=== PATIENT | female | born 1935 | race Asian ===

== ENCOUNTER 2017-01-12 14:47 | Emergency (ER) | payer MEDICARE, OTHER ==
[~2017-01-12] VITALS: Ht 160 cm; Wt 59.1 kg
[~2017-01-12 14:47] MED LIST: AMLO5TAB66 PO; ATOR20TA86 PO; CALC500T62 PO; MONT10TA21 PO; OMEP20 PO
[2017-01-12 16:15] LABS: BASOPHILS % (AUTO) 1.2 % (0.0-2.0); HEMATOCRIT 40.2 % (36-46); HEMOGLOBIN 13.5 g/dL (12.0-16.0); LYMPHOCYTES # (AUTO) 1.9 K/uL (1.0-4.8); LYMPHOCYTES % (AUTO) 35.5 % (22.0-44.0); MEAN CORPUSCULAR HEMOGLOBIN 29.5 pg (26.0-34.0); MEAN CORPUSCULAR HGB CONC 33.6 G/dL (31.0-37.0); MEAN CORPUSCULAR VOLUME 88 fL (80-100); MONOCYTES # (AUTO) 0.2 K/uL (0.1-1.0); MONOCYTES % (AUTO) 3.8 % (2.0-9.0); NEUTROPHILS % (AUTO) 56.5 % (40.0-70.0); PLATELET COUNT (AUTO) 275 K/uL (150-450); RED BLOOD CELL COUNT(AUTO) 4.59 MIL/uL (4.00-5.20); RED CELL DISTRIBUTION WIDTH 14.3 % (11.5-14.5); WHITE BLOOD COUNT (AUTO) 5.2 K/uL (4.5-11.0)
[2017-01-12 16:28] LABS: ANION GAP 9 mmol/L (8-16); CALCIUM, TOTAL 9.7 mg/dL (8.8-10.5); CARBON DIOXIDE 30 mmol/L (22-29); CHLORIDE 105 mmol/L (98-107); CREATININE 0.69 mg/dL (0.60-1.30); GLOMERULAR FILTR. RATE CALC > 60 mL/min (>60); POTASSIUM 4.4 mmol/L (3.5-5.1); SODIUM SERUM 144 mmol/L (136-145); UREA NITROGEN, BLOOD 13 mg/dL (7-18)
[2017-01-12 16:41] LABS: B-TYPE NATRIURETIC PEPTIDE 65 pg/mL (0-100)
[2017-01-12 16:51] LABS: ALANINE AMINOTRANSFERASE 22 U/L (12-78); ALBUMIN 3.9 g/dL (3.4-5.0); ASPARTATE AMINOTRANSFERASE 18 U/L (15-37); BILIRUBIN,TOTAL 0.4 mg/dL (0.1-1.0); CREATINE KINASE MB 1.3 ng/mL (0-5); CREATINE KINASE, TOTAL 87 U/L (26-192); TOTAL PROTEIN, SERUM 8.1 g/dL (6.4-8.2)
[2017-01-12 17:33] VITALS: BP 172/82
== END 2017-01-12 18:08 | disposition home or self-care (01) ==
LOC: EMS 14:47
DX: I10 Essential (primary) hypertension (principal); K21.9 Gastro-esophageal reflux disease without esophagitis; E78.00 Pure hypercholesterolemia, unspecified
CPT/HCPCS: 93005; 99285

== ENCOUNTER → 2018-08-23 | Outpatient (CLI) | payer MEDICARE, OTHER | END | disposition home or self-care (01) | LOC: RADPV 09:16 | PROVIDERS: ATTEND Internal Medicine | DX: Z13.820 Encounter for screening for osteoporosis (principal); M81.0 Age-related osteoporosis without current pathological fracture | CPT/HCPCS: 77080 ==

== ENCOUNTER 2020-09-17 21:17 | Emergency (ER) | payer MEDICARE, OTHER ==
[~2020-09-17] VITALS: Ht 157.5 cm; Wt 69.1 kg
[~2020-09-17 21:17] MED LIST changes: +MONT-35 PO; -MONT10TA21 PO
[2020-09-17 22:05] LABS: BASOPHILS % (AUTO) 1.1 % (0.0-2.0); EOSINOPHILS % (AUTO) 7.2 % (1.0-6.0); HEMOGLOBIN 13.5 g/dL (12.0-16.0); LYMPHOCYTES # (AUTO) 2.9 K/uL (1.0-4.8); MEAN CORPUSCULAR HEMOGLOBIN 28.8 pg (26.0-34.0); MEAN CORPUSCULAR HGB CONC 32.9 G/dL (31.0-37.0); MEAN CORPUSCULAR VOLUME 88 fL (80-100); MONOCYTES # (AUTO) 0.5 K/uL (0.1-1.0); MONOCYTES % (AUTO) 7.2 % (2.0-9.0); NEUTROPHILS # (AUTO) 2.7 K/uL (1.8-7.7); NEUTROPHILS % (AUTO) 40.5 % (40.0-70.0); PLATELET COUNT (AUTO) 289 K/uL (150-450); RED BLOOD CELL COUNT(AUTO) 4.68 MIL/uL (4.00-5.20); RED CELL DISTRIBUTION WIDTH 14.3 % (11.5-14.5)
[2020-09-17 22:16] LABS: CALCIUM, TOTAL 9.5 mg/dL (8.8-10.5); CREATININE 1.01 mg/dL (0.60-1.30); POTASSIUM 3.5 mmol/L (3.5-5.1)
[2020-09-17 22:22] LABS: ALBUMIN 3.9 g/dL (3.4-5.0); BILIRUBIN,TOTAL 0.4 mg/dL (0.1-1.0); TOTAL PROTEIN, SERUM 8.4 g/dL (6.4-8.2)
[2020-09-17 22:50] LABS: APPEARANCE,URINE CLEAR (CLEAR); BILIRUBIN,URINE NEGATIVE (NEGATIVE); GLUCOSE, URINE (UA) NEGATIVE (NEGATIVE); KETONES,URINE NEGATIVE (NEGATIVE); LEUKOCYTE ESTERASE ,URINE TRACE (NEGATIVE); NITRATE,URINE NEGATIVE (NEGATIVE); OCCULT BLOOD,URINE NEGATIVE (NEGATIVE); PH,URINE 6.5 (5.0-8.0); PROTEIN,URINE NEGATIVE (NEGATIVE); UROBILINOGEN,URINE 0.2 mg/dL (<=1.0)
[2020-09-17 23:08] LABS: BACTERIA,URINE None Seen /HPF (None Seen); RBC,URINE None Seen /HPF (0-2); SQUAMOUS EPITHELIAL CELL,UR None Seen /LPF (None Seen)
[2020-09-18] VITALS: BP 155/72
== END 2020-09-18 01:05 | disposition left against medical advice (07) ==
LOC: EMS 21:19
DX: I10 Essential (primary) hypertension (principal); E78.00 Pure hypercholesterolemia, unspecified; Z79.899 Other long term (current) drug therapy; Z88.8 Allergy status to other drugs, medicaments and biological substances
CPT/HCPCS: 70450; 71045; 80053; 81001; 82550; 83880; 84484; 85025; 93005; 99285; 36415-L1; 36415-TC

== ENCOUNTER 2021-03-29 06:38 | Emergency (ER) | payer MEDICARE, OTHER ==
[~2021-03-29] VITALS: Ht 152.4 cm; Wt 59.1 kg
[2021-03-29 07:03] LABS: BASOPHILS % (AUTO) 1.7 % (0.0-2.0); EOSINOPHILS % (AUTO) 9.8 % (1.0-6.0); HEMATOCRIT 41.4 % (36-46); HEMOGLOBIN 13.4 g/dL (12.0-16.0); LYMPHOCYTES # (AUTO) 2.9 K/uL (1.0-4.8); LYMPHOCYTES % (AUTO) 49.2 % (22.0-44.0); MEAN CORPUSCULAR HEMOGLOBIN 28.5 pg (26.0-34.0); MEAN CORPUSCULAR HGB CONC 32.5 G/dL (31.0-37.0); MEAN CORPUSCULAR VOLUME 88 fL (80-100); MONOCYTES # (AUTO) 0.4 K/uL (0.1-1.0); MONOCYTES % (AUTO) 6.5 % (2.0-9.0); NEUTROPHILS # (AUTO) 1.9 K/uL (1.8-7.7); NEUTROPHILS % (AUTO) 32.8 % (40.0-70.0); PLATELET COUNT (AUTO) 258 K/uL (150-450); RED BLOOD CELL COUNT(AUTO) 4.71 MIL/uL (4.00-5.20); RED CELL DISTRIBUTION WIDTH 14.4 % (11.5-14.5)
[2021-03-29 07:11] LABS: ANION GAP 10 mmol/L (8-16); CALCIUM, TOTAL 8.6 mg/dL (8.8-10.5); CARBON DIOXIDE 27 mmol/L (22-29); CHLORIDE 107 mmol/L (98-107); CREATININE 0.79 mg/dL (0.60-1.30); GLOMERULAR FILTR. RATE CALC > 60 mL/min (>60); GLUCOSE,RANDOM 138 mg/dL (70-110); POTASSIUM 3.6 mmol/L (3.5-5.1); SODIUM SERUM 144 mmol/L (136-145); UREA NITROGEN, BLOOD 14 mg/dL (7-18)
[2021-03-29 07:13] LABS: APPEARANCE,URINE CLOUDY (CLEAR); BILIRUBIN,URINE NEGATIVE (NEGATIVE); GLUCOSE, URINE (UA) NEGATIVE (NEGATIVE); KETONES,URINE NEGATIVE (NEGATIVE); LEUKOCYTE ESTERASE ,URINE TRACE (NEGATIVE); NITRATE,URINE POSITIVE (NEGATIVE); OCCULT BLOOD,URINE NEGATIVE (NEGATIVE); PH,URINE 6.5 (5.0-8.0); PROTEIN,URINE NEGATIVE (NEGATIVE); UROBILINOGEN,URINE 0.2 mg/dL (<=1.0)
[2021-03-29] MEDS ORDERED: AmLODIPine BESYLATE 5 MG TABLET PO ONE (07:15)
[2021-03-29] MEDS ORDERED: ONDANSETRON HCL 4 MG TABLET PO ONE (07:15)
[2021-03-29 07:17] LABS: ALANINE AMINOTRANSFERASE 27 U/L (12-78); ALBUMIN 3.6 g/dL (3.4-5.0); ALKALINE PHOSPHATASE 65 U/L (46-116); ASPARTATE AMINOTRANSFERASE 18 U/L (15-37); BILIRUBIN,TOTAL 0.5 mg/dL (0.1-1.0); TOTAL PROTEIN, SERUM 8.1 g/dL (6.4-8.2)
[2021-03-29 07:30] LABS: BACTERIA,URINE Moderate /HPF (None Seen); RBC,URINE None Seen /HPF (0-2); SQUAMOUS EPITHELIAL CELL,UR Few /LPF (None Seen)
[2021-03-29] MEDS ORDERED: ASCO500 PO (07:31)
[2021-03-29] MEDS ORDERED: CIPR-278 PO (07:31)
[2021-03-29] MEDS ORDERED: LOSA25TA21 PO (07:31)
[2021-03-29] MEDS ORDERED: SIMV-259 PO (07:31)
[2021-03-29] MEDS ORDERED: OMEP20 PO (07:31)
[2021-03-29 07:43] LABS: FREE T4 (FREE THYROXINE) 1.01 ng/dL (0.76-1.46); THYROID STIMULATING HORMONE 0.55 uIU/mL (0.36-3.74)
[2021-03-29 07:44] LABS: ACETAMINOPHEN < 2 mcg/mL (10-30)
[2021-03-29] MEDS ORDERED: CefTRIAXone 1 GM/DEXTROSE 50 ML IV ONE (07:45)
[2021-03-29 07:47] LABS: SALICYLATE < 2.8 mg/dL (2.8-20.0)
[2021-03-29 08:45] VITALS: BP 183/85
== END 2021-03-29 09:17 | disposition home or self-care (01) ==
LOC: EMS 06:42
DX: N39.0 Urinary tract infection, site not specified (principal); I10 Essential (primary) hypertension; E78.00 Pure hypercholesterolemia, unspecified; K21.9 Gastro-esophageal reflux disease without esophagitis; Z79.899 Other long term (current) drug therapy
CPT/HCPCS: 36415; 70450; 71045; 80053; 81001; 84439; 84443; 84484; 85025; 87077; 87086; 93005; 96365; 99285; G0480; J0696; Q0162; 87186; G0481

== ENCOUNTER 2023-03-15 08:34 | Emergency (ER) | payer MEDICARE, OTHER ==
[~2023-03-15] VITALS: Ht 152.4 cm; Wt 60.5 kg
[~2023-03-15 08:34] MED LIST changes: +AMLO-258 PO; -AMLO5TAB66 PO; +ASCO500 PO; -ATOR20TA86 PO; +LOSA-417 PO; +SIMV-259 PO
[2023-03-15 09:54] VITALS: TEMP 98.8
[2023-03-15 10:33] LABS: BASOPHILS % (AUTO) 0.9 % (0.0-2.0); EOSINOPHILS % (AUTO) 2.3 % (1.0-6.0); HEMATOCRIT 40.9 % (36-46); HEMOGLOBIN 13.5 g/dL (12.0-16.0); LYMPHOCYTES # (AUTO) 1.6 K/uL (1.0-4.8); LYMPHOCYTES % (AUTO) 30.1 % (22.0-44.0); MEAN CORPUSCULAR HEMOGLOBIN 29.5 pg (26.0-34.0); MEAN CORPUSCULAR HGB CONC 33.1 G/dL (31.0-37.0); MEAN CORPUSCULAR VOLUME 89 fL (80-100); MONOCYTES # (AUTO) 0.2 K/uL (0.1-1.0); MONOCYTES % (AUTO) 4.1 % (2.0-9.0); NEUTROPHILS # (AUTO) 3.4 K/uL (1.8-7.7); NEUTROPHILS % (AUTO) 62.6 % (40.0-70.0); PLATELET COUNT (AUTO) 297 K/uL (150-450); RED CELL DISTRIBUTION WIDTH 14.1 % (11.5-14.5); WHITE BLOOD COUNT (AUTO) 5.5 K/uL (4.5-11.0)
[2023-03-15 10:38] LABS: PROTHROMBIN TIME 10.4 SEC (9.4-11.6)
[2023-03-15 10:40] LABS: ANION GAP 6 mmol/L (8-16); CALCIUM, TOTAL 9.1 mg/dL (8.8-10.5); CARBON DIOXIDE 29 mmol/L (22-29); CHLORIDE 101 mmol/L (98-107); CREATININE 0.86 mg/dL (0.60-1.30); GLOMERULAR FILTR. RATE CALC > 60 mL/min (>60); GLUCOSE,RANDOM 123 mg/dL (70-110); POTASSIUM 3.6 mmol/L (3.5-5.1); SODIUM SERUM 136 mmol/L (136-145); UREA NITROGEN, BLOOD 16 mg/dL (7-18)
[2023-03-15 10:46] LABS: ALANINE AMINOTRANSFERASE 23 U/L (12-78); ALBUMIN 3.6 g/dL (3.4-5.0); ALKALINE PHOSPHATASE 74 U/L (46-116); ASPARTATE AMINOTRANSFERASE 17 U/L (15-37); BILIRUBIN,TOTAL 0.4 mg/dL (0.1-1.0); CREATINE KINASE, TOTAL ONLY 64 U/L (26-192); LIPASE 24 U/L (16-77); TOTAL PROTEIN, SERUM 8.2 g/dL (6.4-8.2)
[2023-03-15 10:48] LABS: TROPONIN I-HIGH SENSITIVITY 16 ng/L (<51)
[2023-03-15 11:01] LABS: B-TYPE NATRIURETIC PEPTIDE 90 pg/mL (0-100)
[2023-03-15 11:41] LABS: APPEARANCE,URINE CLEAR (CLEAR); BILIRUBIN,URINE NEGATIVE (NEGATIVE); COLOR,URINE COLORLESS (YELLOW); GLUCOSE, URINE (UA) NEGATIVE (NEGATIVE); KETONES,URINE NEGATIVE (NEGATIVE); LEUKOCYTE ESTERASE ,URINE SMALL (NEGATIVE); NITRATE,URINE NEGATIVE (NEGATIVE); OCCULT BLOOD,URINE NEGATIVE (NEGATIVE); PH,URINE 7.5 (5.0-8.0); PROTEIN,URINE NEGATIVE (NEGATIVE); SPECIFIC GRAVITIY, URINE 1.005 (1.003-1.030); UROBILINOGEN,URINE <=1.0 mg/dL (<=1.0)
[2023-03-15 11:49] LABS: BACTERIA,URINE None Seen /HPF (None Seen); RBC,URINE None Seen /HPF (0-2); SQUAMOUS EPITHELIAL CELL,UR Few /LPF (None Seen)
[2023-03-15] MEDS ORDERED: ACETAMINOPHEN 500 MG TABLET PO ONE (13:00)
[2023-03-15] MEDS ORDERED: ONDANSETRON HCL 4 MG TABLET PO ONE (13:00)
[2023-03-15] MEDS ORDERED: ONDA-104 PO (13:12)
[2023-03-15 13:40] VITALS: BP 132/69; PULSE 69; RESP 16
== END 2023-03-15 13:53 | disposition home or self-care (01) ==
LOC: EMS 08:53
DX: R10.13 Epigastric pain (principal); I10 Essential (primary) hypertension; Z98.890 Other specified postprocedural states
CPT/HCPCS: 99285; 71045; 80053; 81001; 82550; 83605; 83690; 83880; 84484; 85025; 85610; 85730; 36415; 93005; Q0162

== ENCOUNTER 2024-05-24 18:41 | Inpatient (IN) | payer MEDICARE, OTHER ==
[~2024-05-24] VITALS: Ht 157.5 cm; Wt 82.7 kg
[~2024-05-24 18:41] MED LIST changes: -ASCO500 PO; +ASPI-1450 PO; -CALC500T62 PO; +CHOL100062 PO; +LEVO5TAB13 PO; +LOSA-382 PO; -LOSA-417 PO; -MONT-35 PO; -OMEP20 PO; +OMEP20CA12 PO; +OS500 PO; -SIMV-259 PO; +SIMV-43 PO
[2024-05-24] MEDS ORDERED: SIMV-260 PO (19:59)
[2024-05-24] MEDS ORDERED: LOSA100T59 PO (19:59)
[2024-05-24 20:19] LABS: APPEARANCE,URINE CLEAR (CLEAR); BILIRUBIN,URINE NEGATIVE (NEGATIVE); COLOR,URINE COLORLESS (YELLOW); GLUCOSE, URINE (UA) NEGATIVE (NEGATIVE); KETONES,URINE NEGATIVE (NEGATIVE); LEUKOCYTE ESTERASE ,URINE TRACE (NEGATIVE); NITRATE,URINE NEGATIVE (NEGATIVE); OCCULT BLOOD,URINE NEGATIVE (NEGATIVE); PH,URINE 5.5 (5.0-8.0); PROTEIN,URINE NEGATIVE (NEGATIVE); SPECIFIC GRAVITIY, URINE 1.006 (1.003-1.030); UROBILINOGEN,URINE <=1.0 mg/dL (<=1.0)
[2024-05-24] MEDS: 0.9% SODIUM CHLORIDE 10 ML SYRINGE IVP PRN (20:21)
[2024-05-24] MEDS: ACETAMINOPHEN 1000 MG/ISO-OSM 100 ML IV ONE (20:22)
[2024-05-24] MEDS: AZITHROMYCIN 500 MG/NS 250 ML IV ONE (20:22)
[2024-05-24] MEDS: CefTRIAXone 1 GM/DEXTROSE 50 ML IV ONE (20:22)
[2024-05-24 20:33] LABS: BASOPHILS % (AUTO) 0.6 % (0.0-2.0); EOSINOPHILS % (AUTO) 2.2 % (1.0-6.0); HEMATOCRIT 39.3 % (36-46); HEMOGLOBIN 12.7 g/dL (12.0-16.0); LYMPHOCYTES # (AUTO) 2.6 K/uL (1.0-4.8); LYMPHOCYTES % (AUTO) 31.9 % (22.0-44.0); MEAN CORPUSCULAR HEMOGLOBIN 28.7 pg (26.0-34.0); MEAN CORPUSCULAR HGB CONC 32.4 G/dL (31.0-37.0); MEAN CORPUSCULAR VOLUME 89 fL (80-100); MONOCYTES # (AUTO) 0.8 K/uL (0.1-1.0); MONOCYTES % (AUTO) 9.9 % (2.0-9.0); NEUTROPHILS # (AUTO) 4.5 K/uL (1.8-7.7); NEUTROPHILS % (AUTO) 55.4 % (40.0-70.0); PLATELET COUNT (AUTO) 307 K/uL (150-450); RED BLOOD CELL COUNT(AUTO) 4.43 MIL/uL (4.00-5.20); RED CELL DISTRIBUTION WIDTH 14.4 % (11.5-14.5)
[2024-05-24 20:35] LABS: BACTERIA,URINE None Seen /HPF (None Seen); RBC,URINE None Seen /HPF (0-2); SQUAMOUS EPITHELIAL CELL,UR Rare /LPF (None Seen); WBC,URINE 0-2 /HPF (0-5)
[2024-05-24 20:43] LABS: ANION GAP 8 mmol/L (8-16); CALCIUM, TOTAL 9.1 mg/dL (8.8-10.5); CARBON DIOXIDE 31 mmol/L (22-29); CHLORIDE 100 mmol/L (98-107); CREATININE 1.13 mg/dL (0.60-1.30); GLOMERULAR FILTR. RATE CALC 45 mL/min (>60); GLUCOSE,RANDOM 124 mg/dL (70-110); POTASSIUM 3.3 mmol/L (3.5-5.1); SODIUM SERUM 139 mmol/L (136-145); UREA NITROGEN, BLOOD 18 mg/dL (7-18)
[2024-05-24 20:50] LABS: ALANINE AMINOTRANSFERASE 18 U/L (12-78); ALBUMIN 2.9 g/dL (3.4-5.0); ALKALINE PHOSPHATASE 71 U/L (46-116); ASPARTATE AMINOTRANSFERASE 21 U/L (15-37); BILIRUBIN,TOTAL 0.5 mg/dL (0.1-1.0); CREATINE KINASE, TOTAL ONLY 48 U/L (26-192); TOTAL PROTEIN, SERUM 7.9 g/dL (6.4-8.2)
[2024-05-24 20:52] LABS: LACTIC ACID 1.1 mmol/L (0.4-2.0); TROPONIN I-HIGH SENSITIVITY 20 ng/L (<51)
[2024-05-24 20:54] LABS: B-TYPE NATRIURETIC PEPTIDE 96 pg/mL (0-100)
[2024-05-24] MEDS ORDERED: POTASSIUM CHL 10 MEQ/WATER 50 ML IV PRN (21:45)
[2024-05-24] MEDS ORDERED: ALBUTEROL SULFATE 2.5 MG/0.5 ML NEB SOLUTION NEB PRN (21:45)
[2024-05-24] MEDS ORDERED: HydrALAZINE HCL 20 MG/ML VIAL IVP PRN (21:45)
[2024-05-24] MEDS: AmLODIPine BESYLATE 10 MG TABLET PO SCH (22:12)
[2024-05-24] MEDS: POTASSIUM CHLORIDE 20 MEQ ER TABLET PO PRN (22:12)
[2024-05-25] MEDS: HEPARIN SODIUM,PORCINE 5,000 UNITS/ML VIAL SQ SCH
[2024-05-25 07:32] VITALS: BP 177/83; PULSE 78; RESP 18; TEMP 98; O2SAT 98
[2024-05-25] MEDS: DOCUSATE SODIUM 100 MG CAPSULE PO SCH (08:36)
[2024-05-25] MEDS: BENZONATATE 100 MG CAPSULE PO PRN (08:36)
[2024-05-25] MEDS: FAMOTIDINE 20 MG TABLET PO SCH (08:37)
[2024-05-25 11:00] VITALS: BP 123/95; PULSE 65; RESP 18; TEMP 97.8; O2SAT 96
[2024-05-25 15:48] LABS: COVID AG,FIA SOURCE NASAL SWAB
[2024-05-25 16:08] LABS: INFLUENZA TYPE A NEGATIVE FOR TYPE A (NEGATIVE); INFLUENZA TYPE B NEGATIVE FOR TYPE B (NEGATIVE)
[2024-05-25 16:10] VITALS: BP 150/90; PULSE 73; RESP 18; TEMP 98.1; O2SAT 97
[2024-05-25 16:30] LABS: SARS-COV2 (COVID) ANTIGEN,FIA Positive (Negative)
[2024-05-25] MEDS ORDERED: SODIUM CHLORIDE 0.9% 500 ML IV ONE (19:59)
[2024-05-25 20:49] VITALS: BP 163/71; PULSE 73; RESP 20; TEMP 97.8; O2SAT 97
[2024-05-25] MEDS: CefTRIAXone 1 GM/DEXTROSE 50 ML IV SCH (21:14)
[2024-05-25] MEDS: AZITHROMYCIN 500 MG/NS 250 ML IV SCH (22:25)
[2024-05-26] VITALS: BP 143/75; PULSE 71; RESP 18; TEMP 98.4; O2SAT 95
[2024-05-26 04:29] VITALS: BP 137/63; PULSE 72; RESP 17; TEMP 97.9; O2SAT 94
[2024-05-26 08:21] VITALS: BP 145/104; PULSE 64; RESP 16; TEMP 98; O2SAT 96
[2024-05-26] MEDS ORDERED: BENZ-227 PO (11:28)
[2024-05-26] MEDS ORDERED: LEVO-72 PO (11:28)
[2024-05-26 12:23] VITALS: BP 149/89; PULSE 88; RESP 16; TEMP 98.1; O2SAT 99
[2024-05-26] MEDS: ACETAMINOPHEN 325 MG TABLET PO PRN (15:31)
== END 2024-05-26 18:00 | disposition home or self-care (01) | DRG 177 ==
LOC: EMS 18:41 → EDH 21:49 → 5N 05-25 07:00
PROVIDERS: ADMIT Internal Medicine; ATTEND Internal Medicine
DX: U07.1 COVID-19 (principal); J12.82 Pneumonia due to coronavirus disease 2019; I16.0 Hypertensive urgency; E87.6 Hypokalemia; M81.0 Age-related osteoporosis without current pathological fracture; I10 Essential (primary) hypertension; K21.9 Gastro-esophageal reflux disease without esophagitis; Z87.01 Personal history of pneumonia (recurrent); Z91.148 Patient's other noncompliance with medication regimen for other reason
CPT/HCPCS: 71045; 80048; 80076; 81001; 82550; 83605; 83880; 84132; 84145; 84484; 85025; 87040; 87804; 93005; 99285; G0378; J0131; J0456; J0696; J1644; J7040; 36415-L1; 36415-TC

== ENCOUNTER 2024-09-06 11:44 | Inpatient (IN) | payer MEDICARE, OTHER ==
[~2024-09-06] VITALS: Ht 152.4 cm; Wt 78.5 kg
[~2024-09-06 11:44] MED LIST changes: +BENZ-227 PO; +LEVO-72 PO; -LEVO5TAB13 PO; -LOSA-382 PO
[2024-09-06 12:25] LABS: BASOPHILS % (AUTO) 1.6 % (0.0-2.0); EOSINOPHILS % (AUTO) 3.1 % (1.0-6.0); HEMATOCRIT 41.4 % (36-46); HEMOGLOBIN 13.4 g/dL (12.0-16.0); LYMPHOCYTES % (AUTO) 38.7 % (22.0-44.0); MEAN CORPUSCULAR HEMOGLOBIN 28.5 pg (26.0-34.0); MEAN CORPUSCULAR HGB CONC 32.4 G/dL (31.0-37.0); MEAN CORPUSCULAR VOLUME 88 fL (80-100); MONOCYTES # (AUTO) 0.2 K/uL (0.1-1.0); MONOCYTES % (AUTO) 3.7 % (2.0-9.0); NEUTROPHILS # (AUTO) 2.8 K/uL (1.8-7.7); NEUTROPHILS % (AUTO) 52.9 % (40.0-70.0); PLATELET COUNT (AUTO) 284 K/uL (150-450); RED BLOOD CELL COUNT(AUTO) 4.69 MIL/uL (4.00-5.20); RED CELL DISTRIBUTION WIDTH 14.5 % (11.5-14.5); WHITE BLOOD COUNT (AUTO) 5.2 K/uL (4.5-11.0)
[2024-09-06 12:33] LABS: ANION GAP 7 mmol/L (8-16); CALCIUM, TOTAL 9.2 mg/dL (8.8-10.5); CARBON DIOXIDE 28 mmol/L (22-29); CHLORIDE 103 mmol/L (98-107); CREATININE 0.85 mg/dL (0.60-1.30); GLOMERULAR FILTR. RATE CALC > 60 mL/min (>60); GLUCOSE,RANDOM 127 mg/dL (70-110); POTASSIUM 3.6 mmol/L (3.5-5.1); SODIUM SERUM 138 mmol/L (136-145); UREA NITROGEN, BLOOD 14 mg/dL (7-18)
[2024-09-06 12:42] LABS: LIPASE 23 U/L (16-77); TROPONIN I-HIGH SENSITIVITY 16 ng/L (<51)
[2024-09-06 12:47] LABS: ALBUMIN 3.7 g/dL (3.4-5.0); BILIRUBIN,DIRECT 0.2 mg/dL (0.00-0.20); BILIRUBIN,TOTAL 0.7 mg/dL (0.1-1.0); TOTAL PROTEIN, SERUM 8.6 g/dL (6.4-8.2)
[2024-09-06] MEDS: HydrALAZINE HCL 20 MG/ML VIAL IVP ONE (14:30)
[2024-09-06] MEDS ORDERED: ZOLPIDEM TARTRATE 5 MG TABLET PO PRN (15:45)
[2024-09-06] MEDS ORDERED: HYDROCODONE/ACETAMINOPHEN 5-325 MG TABLET PO PRN (15:45)
[2024-09-06] MEDS ORDERED: ONDANSETRON HCL 4 MG/2 ML VIAL IVP PRN (15:45)
[2024-09-06] MEDS ORDERED: MAGNESIUM HYDROXIDE SUSPENSION 30 ML UDCUP PO PRN (15:45)
[2024-09-06] MEDS ORDERED: ACETAMINOPHEN 325 MG TABLET PO PRN (15:45)
[2024-09-06] MEDS ORDERED: IPRATROPIUM BROMIDE 0.5 MG/2.5 ML NEB SOLUTION NEB PRN (15:45)
[2024-09-06] MEDS ORDERED: BISACODYL 10 MG RECTAL RECTAL SUPPOSITORY PR PRN (15:45)
[2024-09-06] MEDS ORDERED: ALBUTEROL SULFATE 2.5 MG/0.5 ML NEB SOLUTION NEB PRN (15:45)
[2024-09-06] MEDS ORDERED: MORPHINE SULFATE 2 MG/ML SYRINGE IVP PRN (15:45)
[2024-09-06] MEDS: HEPARIN SODIUM,PORCINE 5,000 UNITS/ML VIAL SQ SCH (15:46)
[2024-09-06 17:12] LABS: APPEARANCE,URINE CLEAR (CLEAR); BILIRUBIN,URINE NEGATIVE (NEGATIVE); COLOR,URINE COLORLESS (YELLOW); GLUCOSE, URINE (UA) NEGATIVE (NEGATIVE); KETONES,URINE NEGATIVE (NEGATIVE); LEUKOCYTE ESTERASE ,URINE NEGATIVE (NEGATIVE); NITRATE,URINE NEGATIVE (NEGATIVE); OCCULT BLOOD,URINE NEGATIVE (NEGATIVE); PH,URINE 7.5 (5.0-8.0); PROTEIN,URINE NEGATIVE (NEGATIVE); SPECIFIC GRAVITIY, URINE 1.006 (1.003-1.030); UROBILINOGEN,URINE <=1.0 mg/dL (<=1.0)
[2024-09-06 18:53] VITALS: BP 169/66; PULSE 84; RESP 18; TEMP 98.1; O2SAT 97
[2024-09-06 20:00] VITALS: BP 150/58; PULSE 78; RESP 18; TEMP 97.9; O2SAT 98
[2024-09-06] MEDS: CALCIUM [CALCIUM CARB 1250MG] 500 MG TABLET PO SCH (21:29)
[2024-09-06] MEDS: SIMVASTATIN 20 MG TABLET PO SCH (21:29)
[2024-09-07] VITALS (7 sets, daily range): BP systolic 114–157; BP diastolic 54–72; PULSE 58–74; RESP 18–19; TEMP 97.7–98.2; O2SAT 95–98
[2024-09-07] MEDS: CHOLECALCIFEROL (VIT D3) 1,000 UNITS [25 MCG] TABLET PO SCH (08:53)
[2024-09-07] MEDS: ASPIRIN 81 MG CHEWABLE TABLET PO SCH (08:53)
[2024-09-07] MEDS: PANTOPRAZOLE SODIUM 40 MG DR TABLET PO SCH (08:54)
[2024-09-07] MEDS: AmLODIPine BESYLATE 10 MG TABLET PO SCH (08:54)
[2024-09-08 00:21] VITALS: BP 121/65; PULSE 65; RESP 16; TEMP 98.1; O2SAT 96
[2024-09-08 05:21] VITALS: BP 131/67; PULSE 62; RESP 16; TEMP 97.7; O2SAT 97
[2024-09-08 07:28] VITALS: BP 131/50; PULSE 56; RESP 18; TEMP 98; O2SAT 97
[2024-09-08 11:30] VITALS: BP 134/48; PULSE 58; RESP 19; TEMP 97.5; O2SAT 97
[2024-09-08] MEDS ORDERED: ASPI-1450 PO (12:33)
[2024-09-08] MEDS ORDERED: AMLO-258 PO (12:33)
== END 2024-09-08 13:25 | disposition home or self-care (01) | DRG 74 ==
LOC: EMS 11:46 → EDH 15:32 → 5N 18:41
PROVIDERS: ADMIT Hospitalist; ATTEND Hospitalist
DX: G90.89 Other disorders of autonomic nervous system (principal); E78.5 Hyperlipidemia, unspecified; M81.0 Age-related osteoporosis without current pathological fracture; K21.9 Gastro-esophageal reflux disease without esophagitis; I10 Essential (primary) hypertension; Z79.899 Other long term (current) drug therapy
CPT/HCPCS: 70450; 80048; 80076; 81003; 83690; 84484; 85025; 93005; 96374; 99285; J0360; J1644